=== PATIENT | male | born 1960 | race African-American/Black ===

== ENCOUNTER 2018-05-27 07:47 | Emergency (ER) | payer OTHER ==
[~2018-05-27] VITALS: Ht 175.3 cm; Wt 104.3 kg
--- OUTSIDE RECORDS SUMMARY | 2018-05-27 07:50 | XMS REPORT | Clinical Summary ---
Author [facility] Address Unknown Phone Unavailable Care Team Providers Care Precision Lathe Operator Name Role Phone Austin Payton MD PCP Allergies Not on File Medications End Date Status Medication Sig Dispensed Refills Start Date 03/08/2019 Active losartan-hydroCHLOROthiaz Take 1 tablet 90 tablet 2 sidney (HYZAAR) 100-25 mg by mouth 9 per tablet daily. Active Problems Not on file Encounters Care Team Description Date Type Specialty Austin Payton MD 03/08/2018 Refill Family Medicine after 05/26/2017 Social History Date Tobacco Use Types Packs/Day Years Used Never Assessed Sex Assigned at Date Recorded Not on file Industry Job Start Date Occupation Not on file Not on file Not on file Travel End Travel History Travel Start No recent travel history available. Last Filed Vital Signs Not on file Plan of Treatment Care Team Description Date Type Specialty Austin Payton MD [facility] [address] [place] [address] [phone] 09/22/2018 Office Visit Family Medicine Results Not on fileafter 05/26/2017 Insurance Payer Benefit Subscriber ID Type Phone Address Plan / Group [employer] xxxxxxxxxxxx PPO [phone] [address] POS/PPO/[place] [address] O
[2018-05-27] MEDS ORDERED: LIDOCAINE 1% W/EPINEPHRINE 20 ML VIAL INJ STA (08:08)
[2018-05-27] MEDS ORDERED: BACITRACIN ZINC 0.9GM TP ONE (08:30)
--- NOTE | 2018-05-27 08:57 | Diagnostic Imaging Report ---
EXAM: CXR 2 VIEW - [facility] DATE: 05/27/2018 12:00 AM INDICATION: Cough COMPARISON: None FINDINGS: Lines and tubes: None Heart size normal. No focal pulmonary opacity, pleural effusion or pneumothorax. Upper abdomen unremarkable. No acute bony abnormality. There is degenerative change at the left shoulder. IMPRESSION: No evidence for acute disease. Signed by: Dr. Sachin Booker M.D. on 05/27/2018 8:54 AM
--- NOTE | 2018-05-27 09:00 | Diagnostic Imaging Report ---
Exam: Head CT without contrast History: Trauma Comparison studies: None Technique: Axial images were obtained from the skull base to the vertex. Coronal and sagittal images reconstructed from the axial data. Dose modulation, iterative reconstruction, and/or weight based adjustment of the mA/kV was utilized to reduce the radiation dose to as low as reasonably achievable. Radiation dose: Total DLP: 1090 mGy*cm. Estimated effective dose: DLP x 0.015 Intravenous contrast: None Findings: Soft tissues: Left periorbital soft tissue hematoma. No retained hyperdense foreign body. Globe and lens appear grossly intact. No retrobulbar hematoma. No retained hyperdense intraorbital foreign body. Bones: No fractures, blastic or lytic lesions. Brain sulci: Appropriate for age. Ventricles: Normal in size and configuration. No hydrocephalus. Extra-axial spaces: No masses, no fluid collection. Parenchyma: No abnormal densities. No masses, acute hemorrhage, acute or chronic vascular insults. Sellar/suprasellar region: No abnormalities. Craniocervical junction: Patent foramen magnum. No Chiari one malformation. Incidental findings: Scattered nonspecific inflammatory mucosal thickening in the paranasal sinuses with small fluid level in the right maxillary sinus which could be correlated for acute sinusitis. IMPRESSION: 1. Left periorbital soft tissue hematoma. 2. No retained hyperdense foreign body or fracture. 3. No acute intracranial abnormalities. 4. Nonspecific inflammatory changes in the paranasal sinuses. Signed by: Dr. Kimo Cheek M.D. on 05/27/2018 8:56 AM
[2018-05-27] MEDS ORDERED: POTASSIUM CHLORIDE 20 MEQ TAB CR PO STA (09:11)
== END 2018-05-27 09:35 | disposition home or self-care (01) ==
LOC: FSED 07:47
DX: R55 Syncope and collapse (principal); S01.81XA Laceration without foreign body of other part of head, initial encounter; S01.112A Laceration without foreign body of left eyelid and periocular area, initial encounter; W01.0XXA Fall on same level from slipping, tripping and stumbling without subsequent striking against object, initial encounter; E87.6 Hypokalemia; K52.9 Noninfective gastroenteritis and colitis, unspecified; I10 Essential (primary) hypertension
CPT/HCPCS: 62270; 70450; 71046; 80048; 80076; 82553; 84484; 85025; 93005; 99285